=== PATIENT | male | born 1950 | race Caucasian/White ===

== ENCOUNTER → 2020-10-01 | Outpatient (CLI) | payer MEDICARE ==
[~2020-10-01] MED LIST: COZAAR50 MG PO; ECOTRIN81 MG PO; FLOMAX0.4 MG PO; GLUCOPHAGE XR750 MG PO; IMDUR ER TAB 3030 MG PO; NITROSTAT0.4 MG SL; NORCO 5-325 TA1 EACH PO; NORVASC10 MG PO; PLAVIX 75 MG TA75 MG PO; TOPROL XL50 MG PO
== END ==
LOC: HEART CORB 10:28
DX: I25.10 Atherosclerotic heart disease of native coronary artery without angina pectoris (principal); I49.3 Ventricular premature depolarization; I27.20 Pulmonary hypertension, unspecified; I08.1 Rheumatic disorders of both mitral and tricuspid valves
CPT/HCPCS: 93306